=== PATIENT | female | born 1990 | race African-American/Black ===

== ENCOUNTER 2020-01-13 20:10 | Emergency (ER) | payer MEDICAID ==
[~2020-01-13] VITALS: Ht 170.2 cm; Wt 87.0 kg
[2020-01-13] MEDS ORDERED: SODIUM CHLORIDE 0.9% 1,000 ML IV ONE (21:40)
[2020-01-13] MEDS ORDERED: ONDANSETRON HCL 4MG/2ML INJ IV STA (21:40)
[2020-01-13] MEDS ORDERED: MORPHINE SULFATE 4 MG/ML CPJ (NOT FOR IM USE) IV STA (21:40)
[2020-01-13 22:18] LABS: BASOPHILS % 0.5 % (0.0-2.0); EOSINOPHILS % 2.6 % (0.0-5.0); HEMATOCRIT. 36.5 % (36.0-48.0); HEMOGLOBIN. 12.2 g/dL (12.0-16.0); LYMPHOCYTES % 11.3 % (20.0-50.0); MEAN CORPUSCULAR VOLUME 83.4 fL (81.0-99.0); MEAN PLATELET VOLUME 10.3 fl (7.4-10.4); MONOCYTES % 6.7 % (2.0-8.0); NEUTROPHILS % 78.9 % (40.0-76.0); PLATELET 181 x1000/uL (130-400); RED BLOOD CELL COUNT 4.37 mill/uL (4.2-5.4); RED CELL DISTRIBUTION WIDTH 15.3 % (11.6-14.6)
[2020-01-13 22:24] LABS: CHLORIDE 107 mEq/L (98-107)
[2020-01-13 22:30] LABS: INR 1.1; PROTHROMBIN TIME 11.7 sec (9.6-11.0)
[2020-01-13 23:18] LABS: CLARITY URINE CLEAR (CLEAR); COLOR URINE YELLOW (YELLOW); KETONES URINE NEGATIVE (NEGATIVE); LEUKOCYTE ESTERASE URINE NEGATIVE (NEGATIVE); NITRITE URINE NEGATIVE (NEGATIVE); OCCULT BLOOD URINE NEGATIVE (NEGATIVE); PH URINE 8.5 (4.5-8.0); PROTEIN URINE NEGATIVE (NEGATIVE); SPECIFIC GRAVITY URINE 1.006 (1.005-1.030); UROBILINOGEN URINE 0.2 E.U./dL (0.2-1.0)
[2020-01-14] MEDS ORDERED: MORPHINE SULFATE 4 MG/ML CPJ (NOT FOR IM USE) IV ONE
[2020-01-14 01:30] VITALS: BP 126/81
== END 2020-01-14 01:41 | disposition home or self-care (01) ==
LOC: ER 20:10
DX: N20.0 Calculus of kidney (principal)
CPT/HCPCS: 36415; 74176; 76705; 80053; 81003; 81025; 83690; 85025; 85610; 96374; 96375; 96376; 99285; J2270; J2405; J7030

== ENCOUNTER 2021-03-07 22:20 | Inpatient (IN) | payer MEDICAID ==
[~2021-03-07] VITALS: Ht 165.1 cm; Wt 90.0 kg
[2021-03-07] MEDS ORDERED: MORPHINE SULFATE 4 MG/ML CPJ (NOT FOR IM USE) IV STA (22:35)
[2021-03-07] MEDS ORDERED: ONDANSETRON HCL 4MG/2ML INJ IV STA (22:35)
[2021-03-07] MEDS ORDERED: SODIUM CHLORIDE 0.9% 1,000 ML IV ONE (22:45)
[2021-03-07 23:25] LABS: BASOPHILS % 0.6 % (0.0-2.0); EOSINOPHILS % 2.8 % (0.0-5.0); HEMATOCRIT. 35.7 % (36.0-48.0); HEMOGLOBIN. 11.5 g/dL (12.0-16.0); LYMPHOCYTES % 11.5 % (20.0-50.0); MEAN CORPUSCULAR HEMOGLOBIN 24.9 pg (28.0-32.0); MEAN CORPUSCULAR VOLUME 77.1 fL (81.0-99.0); MEAN PLATELET VOLUME 9.7 fl (7.4-10.4); MONOCYTES % 5.8 % (2.0-8.0); NEUTROPHILS % 79.3 % (40.0-76.0); PLATELET 242 x1000/uL (130-400); RED BLOOD CELL COUNT 4.63 mill/uL (4.2-5.4); RED CELL DISTRIBUTION WIDTH 20.3 % (11.6-14.6)
[2021-03-07 23:29] LABS: CHLORIDE 107 mEq/L (98-107)
[2021-03-07 23:30] LABS: INR 1.1; PROTHROMBIN TIME 11.5 sec (9.6-11.0)
[2021-03-07 23:33] LABS: ETHANOL BLOOD < 10 mg/dL
[2021-03-07 23:37] LABS: HCG SCREEN NEGATIVE
[2021-03-08] MEDS ORDERED: IOHEXOL-300 100 ML BOTTLE ONE (01:20)
[2021-03-08] MEDS ORDERED: CEFTRIAXONE 2 G PREMIX 50 ML IV ONE (02:15)
[2021-03-08] MEDS ORDERED: MORPHINE SULFATE 4 MG/ML CPJ (NOT FOR IM USE) IV ONE (02:15)
[2021-03-08] MEDS ORDERED: METRONIDAZOLE 500 MG PREMIX 100 ML IV ONE (02:15)
[2021-03-08 06:14] LABS: CLARITY URINE CLEAR (CLEAR); COLOR URINE YELLOW (YELLOW); KETONES URINE NEGATIVE (NEGATIVE); LEUKOCYTE ESTERASE URINE TRACE (NEGATIVE); NITRITE URINE NEGATIVE (NEGATIVE); OCCULT BLOOD URINE NEGATIVE (NEGATIVE); PH URINE 6.5 (4.5-8.0); PROTEIN URINE NEGATIVE (NEGATIVE); SPECIFIC GRAVITY URINE 1.022 (1.005-1.030); UROBILINOGEN URINE 0.2 E.U./dL (0.2-1.0)
[2021-03-08 06:37] LABS: *AMPHETAMINES SCREEN URINE NEGATIVE (NEGATIVE); *BARBITURATES SCREEN URINE NEGATIVE (NEGATIVE); *BENZODIAZEPINES SCREEN URINE NEGATIVE (NEGATIVE); *COCAINE SCREEN URINE NEGATIVE (NEGATIVE)
[2021-03-08 06:38] LABS: METHADONE URINE SCREEN NEGATIVE (NEGATIVE); PHENCYCLIDINE URINE SCREEN NEGATIVE (NEGATIVE)
[2021-03-08 06:39] LABS: CANNABINOID URINE SCREEN PRESUMTIVE POSITIVE (NEGATIVE); OPIATES URINE SCREEN PRESUMTIVE POSITIVE (NEGATIVE)
[2021-03-08] MEDS: HYDROCODONE/ACETAMINOPHEN 5/325MG TABLET PO PRN ×2 (10:24→15:04)
[2021-03-08] MEDS ORDERED: ONDANSETRON HCL 4MG/2ML INJ IV PRN (14:30)
[2021-03-08 16:12] VITALS: BP 122/70
== END 2021-03-08 16:21 | disposition home or self-care (01) | DRG 531 ==
LOC: ER 22:31 → MICUSO 03-08 13:34
PROVIDERS: ADMIT Internal Medicine; ATTEND Internal Medicine
DX: N73.9 Female pelvic inflammatory disease, unspecified (principal); E87.2 Acidosis; E66.9 Obesity, unspecified; F12.90 Cannabis use, unspecified, uncomplicated; Z71.3 Dietary counseling and surveillance; Z68.33 Body mass index [BMI] 33.0-33.9, adult
CPT/HCPCS: 36415; 71045; 74177; 80053; 80305; 80320; 81003; 83605; 84703; 85025; 86850; 86900; 93005; 99285; J0696; J2270; J2405; J3490; J7030; Q9967; G0480

== ENCOUNTER 2022-03-24 06:40 | Emergency (ER) | payer MEDICAID ==
[~2022-03-24] VITALS: Ht 172.7 cm; Wt 85.0 kg
[2022-03-24] MEDS ORDERED: KETOROLAC 30MG/ML VIAL IV STA (07:21)
[2022-03-24] MEDS ORDERED: KETOROLAC 30MG/ML VIAL IV NR (09:01)
[2022-03-24 09:30] LABS: HEMATOCRIT. 36.5 % (36.0-48.0); HEMOGLOBIN. 11.8 g/dL (12.0-16.0); MEAN CORPUSCULAR HEMOGLOBIN 24.7 pg (28.0-32.0); MEAN CORPUSCULAR VOLUME 76.6 fL (81.0-99.0); PLATELET 215 x1000/uL (130-400); RED BLOOD CELL COUNT 4.76 mill/uL (4.2-5.4); RED CELL DISTRIBUTION WIDTH 17.2 % (11.6-14.6)
[2022-03-24 09:39] LABS: CHLORIDE 103 mEq/L (98-107); INR 1.2; PROTHROMBIN TIME 12.4 sec (9.6-11.0)
[2022-03-24] MEDS ORDERED: ACETAMINOPHEN 325MG TABLET PO ONE (09:45)
[2022-03-24] MEDS ORDERED: HYDRALAZINE 20MG/ML VIAL IV ONE (09:45)
[2022-03-24] MEDS ORDERED: SODIUM CHLORIDE 0.9% 1,000 ML IV ONE (09:45)
[2022-03-24] MEDS ORDERED: MORPHINE SULFATE 4 MG/ML CPJ (NOT FOR IM USE) IV ONE (10:00)
[2022-03-24 10:44] LABS: PLATELET ESTIMATE NORMAL
[2022-03-24] MEDS ORDERED: TOPUD PO (11:34)
[2022-03-24 12:06] LABS: CLARITY URINE CLEAR (CLEAR); COLOR URINE YELLOW (YELLOW); KETONES URINE NEGATIVE (NEGATIVE); LEUKOCYTE ESTERASE URINE 1+ (NEGATIVE); NITRITE URINE NEGATIVE (NEGATIVE); OCCULT BLOOD URINE NEGATIVE (NEGATIVE); PROTEIN URINE NEGATIVE (NEGATIVE); SPECIFIC GRAVITY URINE 1.006 (1.005-1.030); UROBILINOGEN URINE 0.2 E.U./dL (0.2-1.0)
[2022-03-24] MEDS ORDERED: NITR100C PO (12:09)
[2022-03-24 13:15] VITALS: BP 96/62
== END 2022-03-24 13:25 | disposition home or self-care (01) ==
LOC: ER 06:40 → CANBEDREQ 03-26 09:14
DX: B34.9 Viral infection, unspecified (principal); N39.0 Urinary tract infection, site not specified; I49.9 Cardiac arrhythmia, unspecified; Z20.822 Contact with and (suspected) exposure to COVID-19
CPT/HCPCS: 36415; 71045; 80053; 81003; 83605; 84145; 84484; 85025; 85610; 87040; 87426; 87804; 93005; 96361; 96374; 96375; 99285; C9803; J1885; J2270; J7030